=== PATIENT | male | born 1960 | race Caucasian/White ===

== ENCOUNTER 2021-08-11 03:54 | Emergency (ER) | payer OTHER ==
[2021-08-11] VITALS (12 sets, daily range): BP systolic 106–151; BP diastolic 54–85
[~2021-08-11] VITALS: Ht 188 cm; Wt 75.0 kg
[2021-08-11] MEDS ORDERED: LISINOPRIL10 MG PO (04:34)
[2021-08-11] MEDS ORDERED: LIPITOR20 MG PO (04:34)
[2021-08-11 04:35] LABS: HEMATOCRIT 46.5 % (39.0-50.0); HEMOGLOBIN 14.3 g/dl (14.0-18.0); IMMATURE GRANULOCYTES 0.1 % (0.0-5.0); MEAN CELL VOLUME 88.4 fL CALC (80.0-100.0); MEAN CORPUSCULAR HGB 27.2 pG CALC (26.0-32.0); MEAN CORPUSCULAR HGB CONC 30.8 g/dL CAL (32.0-36.0); NEUT# 5.08 thou/uL (1.82-7.42); RED BLOOD COUNT 5.26 mill/uL (4.70-6.10); RED CELL DISTRI WIDTH 14.4 % (11.5-15.5)
[2021-08-11] MEDS ORDERED: ABILIFY10 M1 PO (04:36)
[2021-08-11] MEDS ORDERED: DIPHENHYDRAM50 M2 PO (04:38)
[2021-08-11] MEDS ORDERED: VENLAFAXINE H37.5 M1 PO (04:39)
[2021-08-11] MEDS ORDERED: OMEPRAZOLE20 MG PO (04:40)
[2021-08-11] MEDS ORDERED: DOK100 MG PO (04:41)
[2021-08-11] MEDS ORDERED: IBUPROFEN600 MG PO (04:42)
[2021-08-11] MEDS ORDERED: PROMETHAZINE25 MG/M1 IJ (04:43)
[2021-08-11 04:53] LABS: ALBUMIN 3.3 g/dL (3.2-5.0); ALKALINE PHOSPHATASE 74 u/l (38-126); AMYLASE 36 u/l (30-110); BILIRUBIN, TOTAL 0.3 mg/dL (0.0-1.4); BUN 13 mg/dL (9-20); BUN/CREATININE RATIO 18 (12-20 (CALC)); CHLORIDE 113 mmol/l (95-108); CREATININE 0.8 mg/dL (0.7-1.3); GFR > 60 ML/MIN (>=60 (CALC)); GFR FOR AFR.AMER. > 60 ML/MIN (>=60 (CALC)); LIPASE 91 u/l (23-300); POTASSIUM 3.6 mmol/l (3.5-5.1); SODIUM 142 mmol/l (137-146); TOTAL PROTEIN 6.2 g/dL (6.3-8.2)
[2021-08-11 04:57] LABS: ANION GAP 11 (6-22 (CALC)); CARBON DIOXIDE 22 mmol/l (22-30); SGOT/AST 27 u/l (17-59)
[2021-08-11 05:05] LABS: MYOGLOBIN 141 ng/mL (0 - 121)
[2021-08-11 06:24] LABS: URINE BILIRUBIN - DIPSTICK NEGATIVE (NEGATIVE); URINE BLOOD DIPSTICK TRACE-INTACT (NEGATIVE); URINE COLOR YELLOW; URINE GLUCOSE - DIPSTICK NEGATIVE (NEGATIVE); URINE KETONE NEGATIVE (NEGATIVE); URINE LEUK ESTERASE NEGATIVE (NEGATIVE); URINE PROTEIN - DIPSTICK NEGATIVE (NEG-TRACE)
[2021-08-11 06:29] LABS: URINE NITRITE - DIPSTICK NEGATIVE (Negative)
[2021-08-11] MEDS ORDERED: ZOFRAN4 MG/TAB PO (07:18)
[2021-08-11] MEDS ORDERED: PROTONIX40 M2 PO (07:18)
== END 2021-08-11 07:16 | disposition designated cancer center or children's hospital (05) | DRG 392 ==
LOC: ED 03:54
PROVIDERS: Family Medicine
DX: R10.13 Epigastric pain (principal); I10 Essential (primary) hypertension; N40.0 Benign prostatic hyperplasia without lower urinary tract symptoms
CPT/HCPCS: Q9967